=== PATIENT | female | born 1955 | race Caucasian/White ===

== ENCOUNTER 2020-05-27 08:47 | Emergency (ER) | payer MEDICARE, MEDICAID ==
[~2020-05-27] VITALS: Ht 162.6 cm; Wt 54.4 kg
--- OUTSIDE RECORDS SUMMARY | 2020-05-27 08:48 | XMS ---
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 Kerry VISIT COUNT (12 MO.) 1 PRATIBHA Mariee TOTAL 1 NOTE: Visits indicate total known visits. ED/UCC VISIT TRACKING (12 MO.) 05/27/2020 08:47 PRATIBHA Leonard TYPE: Emergency COMPLAINT: - NAUSEA, POST OP PROBLEM INPATIENT VISIT TRACKING (12 MO.) 04/25/2020 06:43 [facility] DIAGNOSES: - Minimally displaced Zone I fracture of sacrum, subsequent encounter for fracture with nonunion - Other nondisplaced fracture of fifth cervical vertebra, sequela - Unspecified injury of bladder, initial encounter - Personal history of nicotine dependence - Unspecified fracture of right pubis, initial encounter for closed fracture - Hypo-osmolality and hyponatremia - Essential (primary) hypertension - Hypokalemia - Minimally displaced Zone I fracture of sacrum, initial encounter for closed fracture - Central cord syndrome at unspecified level of cervical spinal cord, sequela - Unspecified fracture of right pubis, subsequent encounter for fracture with nonunion [facility] DIAGNOSES: - Spinal Cord Injury - Central cord syndrome at unspecified level of cervical spinal cord, subsequent encounter 07/26/2019 16:13 [facility] DIAGNOSES: - Central cord syndrome at unspecified level of cervical spinal cord, initial encounter - Unspecified fall, initial encounter - Trauma - ED Rm 21 - Other specified fracture of right pubis, initial encounter for closed fracture - Other specified fracture of left pubis, initial encounter for closed fracture - Other specified conditions associated with female genital organs and menstrual cycle [email or web address]
[2020-05-27] MEDS ORDERED: BUPROPION XL150 MG PO (11:16)
[2020-05-27] MEDS ORDERED: ZANAFLEX4 MG PO (11:16)
[2020-05-27] MEDS ORDERED: LOSARTAN POTAS100 MG PO (11:17)
[2020-05-27] MEDS ORDERED: HYDROCHLOROTHIA25 MG PO (11:17)
[2020-05-27] MEDS ORDERED: CEPHALEXIN500 MG PO (11:59)
[2020-05-27] MEDS ORDERED: ONDANSETRON ODT4 MG PO (12:06)
== END 2020-05-27 12:59 | disposition home or self-care (01) ==
LOC: ED 08:47
DX: N12 Tubulo-interstitial nephritis, not specified as acute or chronic (principal); E87.1 Hypo-osmolality and hyponatremia; E87.6 Hypokalemia; Z88.8 Allergy status to other drugs, medicaments and biological substances; Z88.1 Allergy status to other antibiotic agents; Z79.899 Other long term (current) drug therapy
CPT/HCPCS: 74177; 80053; 81001; 85025; 87077; 87088; 87186; 99285-25; J0696; J2405; J7030; Q9967

== ENCOUNTER 2021-10-16 07:00 | Day surgery (SDC) | payer MEDICARE, MEDICAID ==
[~2021-10-16] VITALS: Ht 162.6 cm; Wt 52.3 kg
[~2021-10-16 07:00] MED LIST: BUPROPION XL150 MG PO; CEPHALEXIN500 MG PO; HYDROCHLOROTHIA25 MG PO; LOSARTAN POTAS100 MG PO; ONDANSETRON ODT4 MG PO; ZANAFLEX4 MG PO
--- NOTE | 2021-10-16 10:44 | NUR ---
10/16/21 Sudha4 Marya Mckeon 1041- PT ARRIVES TO PACU NONAROUSABLE TO NOXIOUS STIMULI WITH AN OPA IN PLACE. RESP EVEN AND UNLABORED. OXYGEN SAT HIGH 90'S TO 100% ON 8L VIA MASK. PT ALSO NEEDING A JAW THRUST TO MAINTAIN PATENT AIRWAY.
[2021-10-16] MEDS ORDERED: TRAZODONE HCL100 MG PO (11:01)
[2021-10-16] MEDS ORDERED: PERCOCET 5-3251 EACH PO (11:01)
[2021-10-16] MEDS ORDERED: LYRICA200 MG PO (11:01)
--- NOTE | 2021-10-16 11:16 | NUR ---
ICED WATER GIVEN. EDGAR KENT ON WARM. PATIENT IS DRINKING AND TOLERATING THAT WELL.
[2021-10-16] MEDS ORDERED: OXYCODONE HCL5 MG PO (11:25)
[2021-10-16] MEDS ORDERED: MACROBID 100 M100 MG PO (11:25)
--- NOTE | 2021-10-16 11:54 | NUR ---
PATIENT IS UP TO THE BATHROOM WHILE USING CANE AND MY STANDBY. SHE AMBULATES WELL AND DENIES DIZZINESS. SHE VOIDS 200 ML OF BLOODY URINE AND AMBULATES BACK TO HER ROOM. SHE REQUESTS TO GET DRESSED. HER CLOTHES ARE PLACED ON THE BED FOR HER. CALL LIGHT IS WITHIN REACH.
--- NOTE | 2021-10-16 12:17 | NUR ---
VERBAL DISCHARGE INSTRUCTIONS ARE GIVEN. PATIENT REPORTS UNDERSTANDING. PATIENT TAKEN TO HER FRIEND'S VEHICLE IN WHEELCHAIR.
--- NOTE | 2021-10-18 18:39 | OR ---
[facility] [address] [place], [place] [address] Signed DATE OF OPERATION: 10/16/2021 SURGEON: Cori Melo MD PREOPERATIVE DIAGNOSIS: Foreign body present in the bladder wall, status post recent repair of bladder wall cystotomy. POSTOPERATIVE DIAGNOSIS: Foreign body present in the bladder wall, status post recent repair of bladder wall cystotomy. NAMES OF PROCEDURES: 1. Diagnostic cystoscopy with excision of foreign body (Prolene stitch) from bladder wall. 2. Simple cold cup bladder biopsy x1. ANESTHESIA: General. ESTIMATED BLOOD LOSS: Minimal. COMPLICATIONS: None. SPECIMENS: Cold cup biopsy of area of erythema adjacent to foreign body, sent to pathology for evaluation. DRAINS: A 20-Eritrean two-way Rebollar catheter, connected to gravity drainage. INDICATIONS FOR PROCEDURE: Ms. Mishra is very pleasant 65-year-old female, who was recently seen by me for evaluation of recurrent UTIs and cystitis symptoms. She underwent diagnostic cystoscopy, which revealed exposed 1 cm length of Prolene suture near the anterior aspect of the bladder wall, adjacent to the patient's previous Boari flap repair. She experienced an iatrogenic cystotomy during surgery last year, which was repaired by a general surgeon according to the patient. I explained to the patient that this will Electronically Signed By: CORI MELO MD 10/18/21 1839 PATIENT NAME: NAHOMY MISHRA OPERATIVE REPORT DATE OF : 59 REPORT #: [id number] PHYSICIAN: CORI MELO MD PCP: BRANDO BELL MD REPORT IS CONFIDENTIAL AND NOT TO BE RELEASED WITHOUT AUTHORIZATION [facility] [address] [place], [place] [address] Signed need to be removed as it could be an obvious nidus of infection for her. She agreed and presents today to undergo removal of the foreign body from her bladder. OPERATIVE FINDINGS: 1. On cystoscopy, there was no evidence of any suspicious masses, lesions, or stones. The left ureteral orifice is in its normal anatomic location effluxing clear urine. 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 2. There is about 1 cm worth of Prolene stitch that is visible coming out of the bladder wall mucosa noted on the anterior wall of the bladder on the right side. This stitch was excised using endoscopic scissors. One portion of the suture was removed to the point, where it was no longer visible endoscopically. The other end of the suture was mostly removed leaving just a very tiny amount nestled within the bladder wall mucosa that was too difficult to extract once it was cut short. 3. A cold cup biopsy was taken of an area of erythema just adjacent to one of the entry points of the Prolene suture. I suspect this is reactive. However, pathology will confirm this. 4. At the end of the procedure, a 20-Eritrean two-way Rebollar catheter was placed into the patient's bladder and connected to gravity drainage. DESCRIPTION OF PROCEDURE: After informed consent was obtained, the patient was taken back to the operating room. She was transferred from the [facility] to the operating room table, where general anesthesia was induced. She was placed in the dorsal lithotomy position and her genitalia prepped and draped in a standard sterile fashion. Using a 30-degree lens on a 22.5-Eritrean introducer, rigid cystoscope was inserted through urethra and into her bladder under direct visualization. Panendoscopic views of the bladder were then obtained. Please see above findings. I immediately noted the presence of the Prolene suture on the anterior wall of the bladder near the right side, endoscopic sutures were used to incise the suture so that now there were 2 ends of the suture protruding from the mucosa. One of those ends was grabbed and pulled to be sure there was no additional suture hiding in the mucosa. Once this was done, endoscopic scissors were then used to excise the suture from the bladder mucosa. This procedure was performed again for the 2nd half of the suture. At this time, it was cut very short, however, we were unable to repeat the excision and there was about a 1 mm amount of suture protruding from this area. I pulled on the mucosa in an attempt to bury what was left of that suture. I removed the endoscopic scissors and then advanced cold cup biopsy forceps and biopsied this an area of erythema adjacent to one of the exposed sutures. This area was then cauterized using Bugbee cautery without incident. The patient's bladder was then irrigated and we were able to obtain the piece of suture that was excised from the patient's bladder. It is an obvious 1 cm length Prolene suture. I would say it is about a 4-0 in size. Once we successfully extracted the suture from the patient's Electronically Signed By: CORI MELO MD 10/18/21 1839 PATIENT NAME: NAHOMY MISHRA OPERATIVE REPORT DATE OF : 59 REPORT #: [id number] PHYSICIAN: CORI MELO MD PCP: BRANDO BELL MD REPORT IS CONFIDENTIAL AND NOT TO BE RELEASED WITHOUT AUTHORIZATION [address] [address] Signed bladder, I inserted a 20-Eritrean catheter and filled the balloon with 10 mL. This will be removed once the patient has awoken in the PACU. The procedure was then terminated. The patient tolerated the procedure well without any complications. She will now be transferred to the PACU in stable condition. DISPOSITION: I discussed the details of today's procedure with the patient. I answered all of her questions. She was notified that 98% of the suture was successfully removed from the patient's bladder today. I am hoping that the remaining edge of suture that we could not extract will become buried within the bladder wall mucosa and hopefully not cause any additional trouble for her. She will be notified of her pathology results as soon as they are available to me. Otherwise, she will be scheduled to return to clinic in approximately 2 months for postoperative evaluation. MD GIOVANNI Rodriguez/ELISEO /[id number] Copies: ~ Electronically Signed By: CORI MELO MD 10/18/21 1839 PATIENT NAME: NAHOMY MISHRA OPERATIVE REPORT DATE OF : 59 REPORT #: [id number] PHYSICIAN: CORI MELO MD PCP: BRANDO BELL MD REPORT IS CONFIDENTIAL AND NOT TO BE RELEASED WITHOUT AUTHORIZATION
--- NOTE | 2021-10-19 13:41 | PATH ---
[facility] [address] [place], [place] [address] Signed SPECIMEN(S): A BLADDER BIOPSY SPECIMEN SOURCE: A. BLADDER BIOPSY CLINICAL HISTORY: Gross hematuria, cystitis, repeat UTI, incomplete bladder emptying. Cystoscopy with bladder biopsy and removal foreign body. FINAL PATHOLOGIC DIAGNOSIS: Bladder, biopsy: - Polypoid urothelium with background chronic cystitis. COMMENT: The fragment of tissue is tangentially sectioned. 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 This was reviewed by another member of our pathology staff, who agrees with the diagnosis. NAL:cml:C2NR MICROSCOPIC EXAMINATION: Histologic sections of all submitted blocks are examined by light microscopy. These findings, together with the gross examination, support the pathologic diagnosis. GROSS DESCRIPTION: The specimen, labeled "DA, A," and designated on the requisition "bladder," is received in formalin and consists of one seymour mucosal tissue fragment measuring 0.3 x 0.3 x 0.2 cm. Specimen is entirely submitted in cassette (A1). AT (under the direct supervision of a pathologist) The Gross Description was prepared using a voice recognition system. The report was reviewed for accuracy; however, sound-alike word errors, addition and/or deletions may occur. If there is any question about this report, please contact Client Services. PERFORMING LABORATORY: The technical component was performed by [facility], [address] [place] [id number] (CLIA# [id number]). [facility] [address] [facility] [address] [address] (CLIA# PATIENT NAME: NAHOMY MISHRA PATHOLOGY DATE OF : 59 REPORT #: [id number] PHYSICIAN: [facility] PCP: BRANDO BELL MD REPORT IS CONFIDENTIAL AND NOT TO BE RELEASED WITHOUT AUTHORIZATION [facility] [address] [place] [address] [place], [place] [address] Signed [id number]). Diagnostician: Susan Barney MD Pathologist Electronically Signed 10/19/2021 Copies: ~ PATIENT NAME: NAHOMY MISHRA PATHOLOGY DATE OF : 59 REPORT #: [id number] PHYSICIAN: [facility] PCP: BRNADO BELL MD REPORT IS CONFIDENTIAL AND NOT TO BE RELEASED WITHOUT AUTHORIZATION
== END 2021-10-16 12:20 | disposition home or self-care (01) ==
LOC: DS 07:00
PROVIDERS: ATTEND Urology
PROC: 0TCB8ZZ Extirpation of Matter from Bladder, Via Natural or Artificial Opening Endoscopic (ICD-10-PCS; 2021-10-16)
PROC: 0TBB8ZX Excision of Bladder, Via Natural or Artificial Opening Endoscopic, Diagnostic (ICD-10-PCS; principal; 2021-10-16 10:00)
DX: T81.590A Other complications of foreign body accidentally left in body following surgical operation, initial encounter (principal); N30.21 Other chronic cystitis with hematuria; I10 Essential (primary) hypertension; M81.0 Age-related osteoporosis without current pathological fracture; F17.210 Nicotine dependence, cigarettes, uncomplicated; S37.10XS Unspecified injury of ureter, sequela; R33.9 Retention of urine, unspecified; Z88.6 Allergy status to analgesic agent; Z88.1 Allergy status to other antibiotic agents; Z88.5 Allergy status to narcotic agent; Z87.440 Personal history of urinary (tract) infections; Y83.8 Other surgical procedures as the cause of abnormal reaction of the patient, or of later complication, without mention of misadventure at the time of the procedure
CPT/HCPCS: 00910; 88305; J0461; J0690; J1100; J1885; J2250; J2405; J2704; J2765; J3010; J7121